=== PATIENT | male | born 1935 | race Caucasian/White ===

== ENCOUNTER 2016-09-21 09:48 | Inpatient (IN) | payer MEDICARE, OTHER ==
[2016-09-11 15:51] LABS: HEMATOCRIT 40.1 % (40.0-51.0); HEMOGLOBIN 12.7 g/dL (13.6-17.8)
[2016-09-11 16:08] LABS: CHLORIDE, SERUM 110 MMOL/L (96-112); CO2 (CARBON DIOXIDE) 31 MMOL/L (24-34); CREATININE 1.39 MG/DL (0.70-1.30); GFR AFRICAN AMERICAN 55 ML/MIN (>=60); GFR NON AFRICAN AMERICAN 47 ML/MIN (>=60); POTASSIUM, SERUM 4.5 MMOL/L (3.5-5.3); SODIUM, SERUM 146 MMOL/L (135-148)
[2016-09-11 16:10] LABS: BUN (BLOOD UREA NITROGEN) 24 MG/DL (6-23); CALCIUM, SERUM 9.6 MG/DL (8.5-10.4); CEA 1.9 NG/ML; GLUCOSE, SERUM 94 MG/DL (60-99)
--- NOTE | ~2016-09-21 | OP ---
Record Of Operation [facility] [address] [place]. 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 PROCEDURE: Extended colectomy with ascending colon rectal anastomosis and mobilization of splenic flexure and hepatic flexure. SURGEON: Van Pool M.D. RESIDENT: Marge. ESTIMATED BLOOD LOSS: 250 mL. INDICATION: Mr. Fernandes is an 81-year-old male who presented with synchronous lesions, needing resection. Laparoscopic possible open operation was discussed with him. The risks including, but not limited to bleeding, infection, heart and lung complications, DVT, anastomotic leak, damage to organs, abdominal wall complications and recuperation among others were discussed with him and he agreed to proceed. DESCRIPTION OF PROCEDURE: The patient was taken to the operating room and placed in supine position. General anesthesia was induced. Lower extremities were placed in stirrups and well padded. The abdomen and perineum were prepped and draped. A small incision was made in the umbilicus and Kelton technique was utilized to place a 12-mm trocar. Air insufflation was obtained to 15 mmHg pressure, and under vision, a right lower quadrant 12 and then suprapubic left lateral and epigastric devices were placed and he was found to have no evidence for metastatic disease. There were adhesions of the transverse colon, omentum to the anterior abdominal wall where it had hernia repair and this was taken down with LigaSure device which took approximately 15 to 20 minutes. Then, we also mobilized the right colon using electrocautery. The duodenum was identified and then the sigmoid colon was mobilized in the sigmoid recess identifying the left ureter and then the ascending colon and splenic flexure were mobilized. I then divided the gastrocolic ligament using the LigaSure device and mobilized the hepatic flexure. I then identified the middle colic vessel, which was somewhat difficult because there was large amount of intraabdominal fat and also there were some large lymph nodes adjacent to the middle colic. It was clipped and divided at its base and the additional mesentery divided including the sigmoid mesentery down to the rectosigmoid junction and TA 60 was placed and fired. Therefore, the left colic artery was also ligated high because of the location of the adenoma. Having freed up the entire colon, I then brought the specimen out and isolated the area with towels and placed a Eduardo clamp on the specimen side. The specimen had been brought out of a small extrusion Record Of [address] [address] NAME: ROSA M FERNANDES : 35 STATUS : ADM IN [facility]#: [id number] AGE: 81 ADM/REG DATE : 09/21/16 MR#: [id number] REPORT SERV DATE: 09/21/16 DICTATED BY: MALLIKA POOL DATE: 09/21/16 REPORT STATUS : Draft TRANSCRIBED BY: GALE DATE: 09/21/16 site incision in the suprapubic area, which was a Pfannenstiel-type incision with a wound protector. The anvil was placed in well-vascularized mid ascending colon, which was then closed on this and using an echelon KATHY stapler having brought the anvil out through the side. I then placed the stapler up through the rectum, but the upper rectum and rectosigmoid area was too tight, and therefore, I removed additional colon down to the mid rectum to allow for anastomosis which was performed firing the 29 EEA stapler with two complete rings and negative leak test. There was no tension and excellent blood supply. The abdomen was checked for hemostasis and then the ports were removed. The umbilical and the right lateral sites were closed with 0 Vicryl at the fascia level and the extrusion site was closed with Vicryl and then the fascia closed with a running 0 PDS, single Vicryl stitch was placed in the skin in the suprapubic incision and then this was otherwise packed open and the other small incisions were closed with subcuticular Vicryl. Counts were correct. The patient tolerated the procedure well. This was particularly difficult because it required removal of the entire transverse colon, distal ascending colon, and descending colon with rotation of the right colon down into the pelvis for anastomosis which was also impeded by very narrowed rectosigmoid area. ESTEFANÍA/ELIDIAL Van Pool M.D. / [id number] CC: Renee Doe M.D.
--- NOTE | ~2016-09-21 | DS ---
Discharge Summary [facility] [address] [facility] [place]. [address] NAME: ROSA M FERNANDES : 35 STATUS : DIS IN PAT#: [id number] AGE: 81 ADM/REG DATE : 09/21/16 MR#: [id number] REPORT SERV DATE: 10/09/16 DICTATED BY: MALLIKA POOL DATE: 10/08/16 REPORT STATUS : Draft TRANSCRIBED BY: GALE DATE: 10/08/16 Data Collection from hospitalization DISCHARGE DIAGNOSES: 1. Colon cancer. 2. Uep-rrqnbar-scprkjifh diabetes mellitus. 3. Hypertension. 4. Ventral hernia. 5. Gastroesophageal reflux disease. 6. Chronic lymphocytic leukemia. 7. Hyperlipidemia. 8. Coronary artery disease. 9. Sleep apnea. CONSULTATIONS: None. PROCEDURES PERFORMED: Extended colectomy with ascending colon to rectal anastomosis and mobilization of splenic flexure and hepatic flexure on 09/21/2016. PATHOLOGY: Specimen submitted as "apical lymph node" node resection - 3 lymph nodes, half SLL/CLL that are negative for carcinoma (0/3). Transverse and rectosigmoid colon segmental resection - invasive adenocarcinoma. Additional transverse - rectosigmoid colon - within normal limits. Mesenteric lymph node biopsy - one lymph node with SLL/CLL, negative for metastatic carcinoma (0/1). Rectosigmoid colon and additional segmental resection - diverticulosis, 5 lymph nodes have SLL/CLL, but were negative for metastatic carcinoma (0/5). MEDICATIONS: Aspirin 162.5 mg daily, Cardura 4 mg at bedtime, Lasix 40 mg daily, Neurontin 300 mg twice a day, Amaryl 2 mg every morning, Mag-Ox 400 mg at bedtime, Antivert 12.5 mg at bedtime, Glucophage 500 mg with breakfast and supper, Endocet 5/325 one tablet every four hours as needed, and Crestor 20 mg on Mondays and Fridays as instructed. CONDITION AT DISCHARGE: Stable. DISPOSITION: The patient was discharged home to be followed by home health care on a soft diet, which would be advanced as tolerated to a regular diet and activities as instructed. He would follow up with me one to two weeks following discharge. HOSPITAL COURSE: This is an 81-year-old man who presented with synchronous lesions that needed resection. Laparoscopic possible open operation were discussed with the patient and he agreed to proceed. He was admitted to the hospital at this time for further evaluation and treatment. Upon admission, he was taken to the operating room where he underwent the above-mentioned procedure. He tolerated this well, and there were no complications. On postop day #1, he had no nausea or vomiting. He had not had a bowel movement. He was afebrile. Creatinine level was 1.37. On postop day #2, he had no nausea or vomiting. He had some confusion earlier in the day. His white blood cell count was 27. On the 09/24/2016, he did have a Discharge Summary [address] [address] NAME: ROSA M FERNANDES : 35 STATUS : DIS IN PAT#: [id number] AGE: 81 ADM/REG DATE : 09/21/16 MR#: [id number] REPORT SERV DATE: 10/09/16 DICTATED BY: MALLIKA POOL DATE: 10/08/16 REPORT STATUS : Draft TRANSCRIBED BY: GALE DATE: 10/08/16 couple of bowel movements. He still felt weak. Creatinine level was 1.61. IV fluids were increased. BUN and creatinine had increased. We encouraged him to mobilize. On 09/25/2016, he did have some diarrhea. His temperature was 101.2. His abdomen was soft. Over the next couple of days, he continued to do well. He still had some abdominal discomfort. C. difficile study was negative. Pathology results were pending. He was encouraged to ambulate and use pulmonary toilet. Discharge planning continued. On 09/27/2016, he was feeling better. His abdomen was nondistended and soft. He had mild tenderness in the lower quadrant. Discharge instructions were given. Due to his improved and stable condition, he was discharged home to be followed by home health care with the above-stated instructions. Information collected by: Caroline Petty I submit the above information as my discharge summary. SIRISHA/GALE Van Pool M.D. / [id number] CC: Renee Doe. Santana Hooper M.D.
[~2016-09-21 09:48] MED LIST: AMARYL2 PO; ASA5GR PO; ASAB; ASAB PO; CARDU4 PO; COREG3 PO; CRESTOR20 MG PO; FISH-EPA1000 MG PO; GLUCPH PO; GOUT MEDICATION; L40 PO; L80 PO; MAGOX4 PO; MCZ125 PO; MICRO-K10 MEQ PO; NEUR100 PO; NEUR300 PO; P10 PO; PERCOCET1 TA4 PO; PREDNISONE; SLOWMAG PO; ULTRAM50 PO; Z100 PO; ZANAFLEX 4 MG TA4 MG PO
[2016-09-21 10:03] LABS: HEMATOCRIT 40.6 % (40.0-51.0); HEMOGLOBIN 13.1 g/dL (13.6-17.8); MEAN CORPUSCULAR HEMOGLOB 30.1 pg (26.0-34.0); MEAN CORPUSCULAR VOLUME 93.3 fL (80-100); MEAN PLATELET VOLUME 10.3 fL (9.2-13.0); PLATELET COUNT 111 10/3/uL (150-400); RBC DISTRIBUTION WIDTH 18.9 % (12.0-16.0)
[2016-09-21 10:04] LABS: MANUAL DIFF YES %; MEAN CORPUS HGB CONC 32.3 g/dL (32.0-36.0); RED CELL COUNT 4.35 10/6/uL (4.7-6.1); WHITE BLOOD CELLS 23.9 10/3/uL (4.5-10.5)
[2016-09-21 10:21] LABS: BASOPHILS 1 %; BASOPHILS ABSOLUTE (CALC) 0.24 10/3/uL (0.0-0.16); EOSINOPHILS 1 %; EOSINOPHILS ABSOLUTE (CALC) 0.24 10/3/uL (0.0-0.53); LYMPHOCYTES 84 %; LYMPHOCYTES ABSOLUTE (CALC) 20.08 10/3/uL (0.67-4.30); MONOCYTES 5 %; NEUTROPHILS ABSOLUTE (CALC) 2.15 10/3/uL (2.02-8.40); SEGMENTED NEUTROPHIL (0) 9 %; TOTAL NUCLEATED CELLS 100
[2016-09-21 10:22] LABS: ANISOCYTOSIS 1+ (5-10/OIF) (0-5/OIF); PLATELET ESTIMATE SLT DEC (ADEQUATE); SMUDGE CELLS OCC
[2016-09-22 07:45] LABS: HEMOGLOBIN 11.7 g/dL (13.6-17.8); MEAN CORPUS HGB CONC 32.2 g/dL (32.0-36.0); MEAN CORPUSCULAR HEMOGLOB 30.4 pg (26.0-34.0); MEAN CORPUSCULAR VOLUME 94.3 fL (80-100); PLATELET COUNT 97 10/3/uL (150-400); RBC DISTRIBUTION WIDTH 19.3 % (12.0-16.0); RED CELL COUNT 3.85 10/6/uL (4.7-6.1)
[2016-09-22 07:50] LABS: HEMATOCRIT 36.3 % (40.0-51.0)
[2016-09-22 07:52] LABS: MANUAL DIFF YES %
[2016-09-22 07:58] LABS: CHLORIDE, SERUM 107 MMOL/L (96-112); CO2 (CARBON DIOXIDE) 28 MMOL/L (24-34); CREATININE 1.37 MG/DL (0.70-1.30); GFR AFRICAN AMERICAN 56 ML/MIN (>=60); GFR NON AFRICAN AMERICAN 48 ML/MIN (>=60); POTASSIUM, SERUM 5.1 MMOL/L (3.5-5.3)
[2016-09-22 07:59] LABS: BUN (BLOOD UREA NITROGEN) 17 MG/DL (6-23); CALCIUM, SERUM 8.4 MG/DL (8.5-10.4); GLUCOSE, SERUM 170 MG/DL (60-99); SODIUM, SERUM 139 MMOL/L (135-148)
[2016-09-22 08:31] LABS: BAND NEUTROPHILS 6 %; LYMPHOCYTES 70 %; MONOCYTES 2 %; MONOCYTES ABSOLUTE (CALC) 0.54 10/3/uL (0.21-1.20); NEUTROPHILS ABSOLUTE (CALC) 7.56 10/3/uL (2.02-8.40); SEGMENTED NEUTROPHIL (0) 22 %; TOTAL NUCLEATED CELLS 100
[2016-09-22 08:32] LABS: ANISOCYTOSIS 1+ (5-10/OIF) (0-5/OIF); BURR CELLS 1+ (3-10/OIF) (0-2/OIF); PLATELET ESTIMATE DEC (ADEQUATE); POIKILOCYTOSIS 1+ (5-10/OIF) (0-5/OIF); SMUDGE CELLS MOD; TEARDROP SHAPED RBCS OCC (0-2/OIF)
[2016-09-23 10:18] LABS: HEMATOCRIT 33.1 % (40.0-51.0); HEMOGLOBIN 10.5 g/dL (13.6-17.8); MEAN CORPUS HGB CONC 31.7 g/dL (32.0-36.0); MEAN CORPUSCULAR HEMOGLOB 29.9 pg (26.0-34.0); MEAN CORPUSCULAR VOLUME 94.3 fL (80-100); MEAN PLATELET VOLUME 10.2 fL (9.2-13.0); PLATELET COUNT 86 10/3/uL (150-400); RBC DISTRIBUTION WIDTH 19.5 % (12.0-16.0); RED CELL COUNT 3.51 10/6/uL (4.7-6.1); WHITE BLOOD CELLS 21.6 10/3/uL (4.5-10.5)
[2016-09-23 10:23] LABS: MANUAL DIFF YES %
[2016-09-23 10:30] LABS: BUN (BLOOD UREA NITROGEN) 18 MG/DL (6-23); CALCIUM, SERUM 8.6 MG/DL (8.5-10.4); CHLORIDE, SERUM 106 MMOL/L (96-112); CO2 (CARBON DIOXIDE) 30 MMOL/L (24-34); CREATININE 1.61 MG/DL (0.70-1.30); GFR AFRICAN AMERICAN 46 ML/MIN (>=60); GFR NON AFRICAN AMERICAN 40 ML/MIN (>=60); GLUCOSE, SERUM 146 MG/DL (60-99); POTASSIUM, SERUM 4.6 MMOL/L (3.5-5.3); SODIUM, SERUM 137 MMOL/L (135-148)
[2016-09-23 10:53] LABS: ANISOCYTOSIS 1+ (5-10/OIF) (0-5/OIF); BAND NEUTROPHILS 1 %; LYMPHOCYTES 72 %; LYMPHOCYTES ABSOLUTE (CALC) 15.55 10/3/uL (0.67-4.30); NEUTROPHILS ABSOLUTE (CALC) 6.05 10/3/uL (2.02-8.40); PLATELET ESTIMATE DEC (ADEQUATE); SEGMENTED NEUTROPHIL (0) 27 %; SMUDGE CELLS FEW; TOTAL NUCLEATED CELLS 100
[2016-09-25 06:40] LABS: HEMATOCRIT 31.8 % (40.0-51.0); HEMOGLOBIN 10.5 g/dL (13.6-17.8); MEAN CORPUSCULAR HEMOGLOB 30.7 pg (26.0-34.0); MEAN PLATELET VOLUME 10.1 fL (9.2-13.0); PLATELET COUNT 99 10/3/uL (150-400); RBC DISTRIBUTION WIDTH 19.2 % (12.0-16.0); RED CELL COUNT 3.42 10/6/uL (4.7-6.1); WHITE BLOOD CELLS 21.6 10/3/uL (4.5-10.5)
[2016-09-25 06:43] LABS: MANUAL DIFF YES %
[2016-09-25 06:54] LABS: BUN (BLOOD UREA NITROGEN) 21 MG/DL (6-23); CALCIUM, SERUM 9.2 MG/DL (8.5-10.4); CHLORIDE, SERUM 106 MMOL/L (96-112); CO2 (CARBON DIOXIDE) 26 MMOL/L (24-34); GFR AFRICAN AMERICAN 54 ML/MIN (>=60); GFR NON AFRICAN AMERICAN 47 ML/MIN (>=60); GLUCOSE, SERUM 148 MG/DL (60-99); POTASSIUM, SERUM 3.9 MMOL/L (3.5-5.3); SODIUM, SERUM 140 MMOL/L (135-148)
[2016-09-25 07:03] LABS: BAND NEUTROPHILS 3 %; EOSINOPHILS 1 %; EOSINOPHILS ABSOLUTE (CALC) 0.22 10/3/uL (0.0-0.53); LYMPHOCYTES 77 %; LYMPHOCYTES ABSOLUTE (CALC) 16.63 10/3/uL (0.67-4.30); MONOCYTES 4 %; MONOCYTES ABSOLUTE (CALC) 0.86 10/3/uL (0.21-1.20); NEUTROPHILS ABSOLUTE (CALC) 3.89 10/3/uL (2.02-8.40); SEGMENTED NEUTROPHIL (0) 15 %; TOTAL NUCLEATED CELLS 100
[2016-09-25 07:04] LABS: ANISOCYTOSIS 1+ (5-10/OIF) (0-5/OIF); BURR CELLS 1+ (3-10/OIF) (0-2/OIF); MACROCYTES 1+ (5-10/OIF) (0-5/OIF); PLATELET ESTIMATE DEC (ADEQUATE); POIKILOCYTOSIS 1+ (5-10/OIF) (0-5/OIF); SMUDGE CELLS MOD
[2016-09-25 12:12] LABS: ASCORBIC ACID (UR NOT ORDER) NEG (NEG); BILIRUBIN, URINE NEGATIVE (NEG); KETONE, URINE NEGATIVE (NEG); LEUKOCYTE ESTERASE(NOT OR NEG (NEG); WBC (NOT ORDERED) (RFLEX) 1 (0-5)
[2016-09-26 07:05] LABS: HEMATOCRIT 33.1 % (40.0-51.0); HEMOGLOBIN 10.8 g/dL (13.6-17.8); MANUAL DIFF YES %; MEAN CORPUS HGB CONC 32.6 g/dL (32.0-36.0); MEAN CORPUSCULAR HEMOGLOB 30.5 pg (26.0-34.0); MEAN CORPUSCULAR VOLUME 93.5 fL (80-100); MEAN PLATELET VOLUME 10.1 fL (9.2-13.0); PLATELET COUNT 105 10/3/uL (150-400); RBC DISTRIBUTION WIDTH 18.8 % (12.0-16.0); RED CELL COUNT 3.54 10/6/uL (4.7-6.1); WHITE BLOOD CELLS 21.7 10/3/uL (4.5-10.5)
[2016-09-26 07:18] LABS: BUN (BLOOD UREA NITROGEN) 20 MG/DL (6-23); CALCIUM, SERUM 9.2 MG/DL (8.5-10.4); CHLORIDE, SERUM 110 MMOL/L (96-112); CO2 (CARBON DIOXIDE) 25 MMOL/L (24-34); CREATININE 1.24 MG/DL (0.70-1.30); GFR AFRICAN AMERICAN 63 ML/MIN (>=60); GFR NON AFRICAN AMERICAN 54 ML/MIN (>=60); GLUCOSE, SERUM 156 MG/DL (60-99); POTASSIUM, SERUM 4.1 MMOL/L (3.5-5.3); SODIUM, SERUM 140 MMOL/L (135-148)
[2016-09-26 07:29] LABS: ANISOCYTOSIS 1+ (5-10/OIF) (0-5/OIF); LYMPHOCYTES 84 %; LYMPHOCYTES ABSOLUTE (CALC) 18.23 10/3/uL (0.67-4.30); MONOCYTES 2 %; MONOCYTES ABSOLUTE (CALC) 0.43 10/3/uL (0.21-1.20); NEUTROPHILS ABSOLUTE (CALC) 3.04 10/3/uL (2.02-8.40); OVALOCYTES 1+ (3-10/OIF) (0-2/OIF); SEGMENTED NEUTROPHIL (0) 14 %; TOTAL NUCLEATED CELLS 100
[2016-09-26 07:30] LABS: PLATELET ESTIMATE SLT DEC (ADEQUATE)
[2016-09-28] MEDS ORDERED: ENDOCET1 TAB PO (09:09)
== END 2016-09-28 12:38 | disposition home health service (06) | DRG 330 ==
LOC: SDC/OF 09:48 → PACU 17:15 → 5SO 19:07
PROVIDERS: Colon & Rectal Surgery
PROC: 0DTL0ZZ Resection of Transverse Colon, Open Approach (ICD-10-PCS; principal; 2016-09-21 11:45)
DX: C18.4 Malignant neoplasm of transverse colon (principal); K56.7 Ileus, unspecified; E11.22 Type 2 diabetes mellitus with diabetic chronic kidney disease; D62 Acute posthemorrhagic anemia; D12.5 Benign neoplasm of sigmoid colon; Z88.8 Allergy status to other drugs, medicaments and biological substances; R42 Dizziness and giddiness; G47.33 Obstructive sleep apnea (adult) (pediatric); Z91.19 Patient's noncompliance with other medical treatment and regimen; I25.10 Atherosclerotic heart disease of native coronary artery without angina pectoris; I25.2 Old myocardial infarction; I25.5 Ischemic cardiomyopathy; Z95.810 Presence of automatic (implantable) cardiac defibrillator; N18.9 Chronic kidney disease, unspecified; D50.0 Iron deficiency anemia secondary to blood loss (chronic)
CPT/HCPCS: 71020; 80048; 81001; 82378; 82962; 85014; 85018; 85025; 87493; 87493-59; 88305; 88307; 88309; 88313; 88341; 88342; 93005; A9270-GY; J0690; J1170; J1956; J2250; J2405; J2550; J2710; J2795; J3010